=== PATIENT | female | born 1965 | race Caucasian/White ===

== ENCOUNTER 2017-11-07 11:05 | Emergency (ER) | payer OTHER ==
[~2017-11-07] VITALS: Ht 154.9 cm; Wt 78.5 kg
[~2017-11-07 11:05] MED LIST: ADVAIR 2501 DISK W/1; ADVAIR 2501 DISK W/1 IH; JANUMET 50-501 UDTAB; SINGULAIR10 MG PO; SINGULAIR4 MG; TESSALON PERLE100 MG PO; TESSALON200 MG; TUSSIONEX PENNKI5 ML; TUSSIONEX PENNKI5 ML PO; [UNRECOGNIZED DRUG - OTHER]; [UNRECOGNIZED DRUG - OTHER]
== END 2017-11-07 22:54 | disposition home or self-care (01) ==
LOC: ER 11:05
DX: J45.998 Other asthma (principal); E11.9 Type 2 diabetes mellitus without complications

== ENCOUNTER 2018-07-27 16:01 | Emergency (ER) | payer OTHER ==
[~2018-07-27] VITALS: Ht 165.1 cm; Wt 81.6 kg
== END 2018-07-27 19:56 | disposition home or self-care (01) ==
LOC: ER 16:01
DX: B34.9 Viral infection, unspecified (principal); E86.0 Dehydration

== ENCOUNTER 2018-12-24 16:31 | Inpatient (IN) | payer OTHER ==
[~2018-12-24] VITALS: Ht 154.9 cm; Wt 79.8 kg
[2018-12-31] MEDS ORDERED: ALBUTEROL0.63 MG/3 IH (09:42)
[2018-12-31] MEDS ORDERED: SYMBICORT 16010.2 GM IH (09:42)
[2018-12-31] MEDS ORDERED: MEDROLPACK PO (09:43)
[2018-12-31] MEDS ORDERED: DOXYCYCLINE HY100 M2 PO (09:48)
== END 2018-12-31 10:46 | disposition home or self-care (01) | DRG 202 ==
LOC: ER 16:31 → MEDJ 12-25 09:23 → SURH 12-29 18:19
PROVIDERS: ADMIT Internal Medicine
PROC: 3E0F7GC Introduction of Other Therapeutic Substance into Respiratory Tract, Via Natural or Artificial Opening (ICD-10-PCS; 2018-12-25)
PROC: 4A12X4Z Monitoring of Cardiac Electrical Activity, External Approach (ICD-10-PCS; principal; 2018-12-26)
PROC: 8E0ZXY6 Isolation (ICD-10-PCS; 2018-12-28)
DX: J45.51 Severe persistent asthma with (acute) exacerbation (principal); B37.1 Pulmonary candidiasis; J15.7 Pneumonia due to Mycoplasma pneumoniae; J15.212 Pneumonia due to Methicillin resistant Staphylococcus aureus; J09.X1 Influenza due to identified novel influenza A virus with pneumonia; J44.1 Chronic obstructive pulmonary disease with (acute) exacerbation; E11.65 Type 2 diabetes mellitus with hyperglycemia; Z79.4 Long term (current) use of insulin; E86.0 Dehydration; E87.8 Other disorders of electrolyte and fluid balance, not elsewhere classified; D72.828 Other elevated white blood cell count; Z22.322 Carrier or suspected carrier of Methicillin resistant Staphylococcus aureus

== ENCOUNTER 2021-10-05 11:11 | Inpatient (IN) | payer OTHER ==
[~2021-10-05] VITALS: Ht 152.4 cm; Wt 74.4 kg
[~2021-10-05 11:11] MED LIST changes: +ALBUTEROL0.63 MG/3 IH; +DOXYCYCLINE HY100 M2 PO; +MEDROLPACK PO; +SYMBICORT 16010.2 GM IH
== END 2021-10-13 14:45 | disposition home or self-care (01) | DRG 203 ==
LOC: ER 11:11 → SEC-K 10-06 08:11 → MEDJ 10-06 14:32
PROVIDERS: ADMIT Internal Medicine; ATTEND Internal Medicine
PROC: BW24ZZZ Computerized Tomography (CT Scan) of Chest and Abdomen (ICD-10-PCS; principal; 2021-10-06)
DX: J45.51 Severe persistent asthma with (acute) exacerbation (principal); J40 Bronchitis, not specified as acute or chronic; D72.828 Other elevated white blood cell count; Z79.4 Long term (current) use of insulin; E86.0 Dehydration; E87.8 Other disorders of electrolyte and fluid balance, not elsewhere classified; E11.9 Type 2 diabetes mellitus without complications; Z20.822 Contact with and (suspected) exposure to COVID-19

== ENCOUNTER 2023-01-25 20:19 | Emergency (ER) | payer OTHER ==
[~2023-01-25] VITALS: Ht 154.9 cm; Wt 71.7 kg
[2023-01-25] MEDS ORDERED: LIPITOR40 M1 (21:02)
[2023-01-25] MEDS ORDERED: METFORMIN HCL1000 M2 (21:02)
[2023-01-25] MEDS ORDERED: GLIMEPIRIDE4 MG (21:02)
[2023-01-25] MEDS ORDERED: BAYER CHILDREN'81 MG (21:02)
== END 2023-01-25 21:56 | disposition home or self-care (01) ==
LOC: ER 20:19
DX: H53.2 Diplopia (principal)